=== PATIENT | female | born 1950 | race Caucasian/White ===

== ENCOUNTER 2021-10-15 14:16 | Emergency (ER) | payer MEDICARE, MEDICAID, SELFPAY ==
--- NOTE | ~2021-10-15 | XR_ITS ---
EXAMINATION: XR facial bones min 3V DATE: 10/15/2021 15:32 INDICATION: Left facial pain. Fall. TECHNIQUE: 6 views of the facial bones were obtained. COMPARISON: None. FINDINGS: Bone alignment is normal. No fracture. IMPRESSION: 1. No fracture. Reviewed, dictated and finalized at location A. IMPRESSION: 1. No fracture.
--- NOTE | ~2021-10-15 | XR_ITS ---
EXAMINATION: XR finger 4th LT min 2V DATE: 10/15/2021 16:39 INDICATION: Dislocated left hand fourth proximal interphalangeal joint status post reduction. TECHNIQUE: 3 views of left hand fourth digit were obtained. COMPARISON: Left hand radiographs at 3:02 PM FINDINGS: Bone alignment is normal. There is a chip fracture at medial aspect of head of fourth proxi mal phalanx. There is severe osteoarthritis of fourth distal interphalangeal joint and moderate osteo arthritis of fourth proximal interphalangeal joint. There is soft tissue swelling of fourth digit. IMPRESSION: 1. Chip fracture of medial aspect of head of fourth proximal phalanx. 2. Polyarticular osteoarthritis. Reviewed, dictated and finalized at location A.
--- NOTE | ~2021-10-15 | XR_ITS ---
EXAMINATION: XR hand LT min 3V DATE: 10/15/2021 15:30 INDICATION: Left hand injury. TECHNIQUE: 3 views of left hand were obtained. COMPARISON: None. FINDINGS: There is radial subluxation of third distal phalanx with respect to the middle phalanx. The re is dorsal dislocation of fourth middle phalanx with respect to the proximal phalanx. No fracture. There is moderate osteoarthritis of triscaphe joint and severe osteoarthritis of first carpometacarpa l joint. There is osteoarthritis of all of the interphalangeal joints, severe at third proximal inter phalangeal joint and second-fourth distal interphalangeal joints. IMPRESSION: 1. Dislocation of fourth proximal interphalangeal joint. 2. Polyarticular osteoarthritis. Reviewed, dictated and finalized at location A.
--- NOTE | ~2021-10-15 | XR_ITS ---
EXAMINATION: XR shoulder LT min 2V DATE: 10/15/2021 15:44 INDICATION: Left shoulder injury. TECHNIQUE: 4 views of left shoulder were obtained. COMPARISON: None. FINDINGS: Bone alignment is normal. No fracture. There is severe osteoarthritis of glenohumeral joint and mild osteoarthritis of the acromioclavicular joint. There is a loose body in glenohumeral joint. IMPRESSION: 1. Severe glenohumeral joint osteoarthritis with loose body. Reviewed, dictated and finalized at location A.
--- NOTE | 2021-10-15 14:18 | ED.FALL ---
HPI - Fall General Chief Complaint: Fall Stated Complaint: Fall Injury/Finger Injury Time Seen by Provider: 10/15/21 14:17 Source: patient Mode of arrival: ambulatory Limitations: no limitations History of Present Illness HPI Narrative: Mrs. Flores is a 70-year-old female patient presenting to the clinic today with complaints of a finger and left-sided facial injury after falling. She reports she tripped on some jagged concrete and thinks that is how she cut her finger however she feels as though she hyperextended her fingers on her left hand. Has a laceration to the fourth digit of the left hand with noted deformity. Also has bruising and swelling to the upper left cheek with a knot to this area. Very tender to touch. She denies any visual changes or any loss of consciousness. Abrasions noted to bilateral anterior knee and on her fingers of the left hand. This occurred approximately 40 minutes ago. Tetanus status is unknown Related Data Home Medications Medication Instructions Recorded Confirmed allopurinol 300 mg tablet mg 10/15/21 apixaban 5 mg tablet (Eliquis) mg 10/15/21 atorvastatin 40 mg tablet mg 10/15/21 canagliflozin 100 mg tablet mg 10/15/21 (Invokana) carvedilol 25 mg tablet mg 10/15/21 clonidine HCl 0.2 mg tablet mg 10/15/21 metformin 500 mg tablet mg 10/15/21 sitagliptin 100 mg tablet (Januvia) mg 10/15/21 Allergies Allergy/AdvReac Type Severity Reaction Status Date / Time No Known Allergies Allergy Verified 10/15/21 14:53 Review of Systems Review of Systems: Pertinent positives per HPI. Patient denies any fever, chills, rash, headache, visual changes, dizziness, cough, runny nose, sore throat, shortness of breath, chest pain, palpitations, nausea, vomiting, diarrhea, constipation, abdominal pain, or any urinary issues. PMFSH Comments At the time of my signature, I reviewed and agree with the nursing past medical, surgical, social, and family history. There is no relevant family history pertinent to the patient complaint. Exam Narrative: General: Well-developed, well nourished, in no apparent distress Head: Normocephalic, knotted bruise to the left cheek with tenderness to palpation. No change in vision, pain to palpation over left lower/lateral orbit. Cardio: Regular rate and rhythm, s1 and s2 normal, no murmur appreciated. Resp: Clear to auscultation bilaterally, no rhonchi, rales, wheezing or rubs. Musculoskeletal: Obvious deformity of the fourth third digit MIP joint,tender to palpation over the second, third, fourth and fifth digits of the left hand with swelling to the 4th digit. Ring on the 4th digit removed using the ring cutter with consent the patient. Limited range of motion to the fourth digit, able to move the second,third, and fifth digit grossly normal, muscle strength strong and equal, peripheral pulse strong, no cyanosis, normal gait and station Skin: Abrasions to bilateral anterior knee, abrasions to the 3rd and 5th digit patient to follow-up in 2-3 days with primary care provider. approx 2cm laceration to the volar mip joint of the 4th finger Course Course Emergency Course: Portions of this record may have been created with voice recognition software. Level of Care: Express Care Visit Vital Signs Vital signs: Vital Signs Temperature 36.2 C L 10/15/21 14:26 Pulse Rate 58 L 10/15/21 14:26 Respiratory Rate 20 10/15/21 14:26 Blood Pressure 123/44 L 10/15/21 14:26 Pulse Oximetry 96 10/15/21 14:26 Oxygen Delivery Room Air 10/15/21 14:26 Temperature 36.2 C L 10/15/21 14:26 Pulse Rate 58 L 10/15/21 14:26 Respiratory Rate 20 10/15/21 14:26 Blood Pressure 123/44 L 10/15/21 14:26 Pulse Oximetry 96 10/15/21 14:26 Oxygen Delivery Room Air 10/15/21 14:26 Vital signs reviewed Procedures Laceration Laceration 1: Date: 10/15/21 Site: hand (Fourth finger laceration left hand) Side (If applicable): left Size
[2021-10-15 14:26] VITALS: BP 123/44; PULSE 58; RESP 20; TEMP 36.2; O2SAT 96
[2021-10-15] MEDS: TETANUS,DIPHTHERIA,AC PERTUSSIS ADULT (0.5 ML) BOOSTRIX IM (16:42)
== END 2021-10-15 17:17 | disposition home or self-care (01) ==
LOC: EXPBETH 14:22
PROVIDERS: Emergency Provider Nurse Practitioner Family; PCP Internal Medicine
DX: S80.212A Abrasion, left knee, initial encounter (principal); S80.211A Abrasion, right knee, initial encounter; S60.413A Abrasion of left middle finger, initial encounter; S60.417A Abrasion of left little finger, initial encounter; W01.0XXA Fall on same level from slipping, tripping and stumbling without subsequent striking against object, initial encounter; S62.615B Displaced fracture of proximal phalanx of left ring finger, initial encounter for open fracture; S63.285A Dislocation of proximal interphalangeal joint of left ring finger, initial encounter; Z23 Encounter for immunization; I48.91 Unspecified atrial fibrillation; E78.00 Pure hypercholesterolemia, unspecified; I10 Essential (primary) hypertension; M10.9 Gout, unspecified; E11.9 Type 2 diabetes mellitus without complications
CPT/HCPCS: 12001; 26770; 29130; 70150; 73030; 73130; 73140; 90471; 90715; 99214; G0463